=== PATIENT | male | born 2000 | race Caucasian/White ===

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

== ENCOUNTER 2024-06-06 22:53 | Emergency (ER) | payer OTHER, SELFPAY ==
[2024-06-06 22:54] VITALS: BP 156/77; PULSE 90; RESP 18; TEMP 36.7; O2SAT 100; BMI 32.1
[2024-06-06 22:56] VITALS: BP 156/77; PULSE 90; RESP 18; TEMP 36.7; O2SAT 100
--- NOTE | 2024-06-06 23:22 | EX.ED.DYSGE1 ---
HPI History of Present Illness Chief Complaint: Rash Informant: patient and parent Narrative Narrative: Patient is a 24-year-old male with no significant past medical history. He states Monday night to Monday morning he noticed redness to the top of his right foot. He states that there was no trauma and he denies any exposures. He states that the rash was more painful and not pruritic. He reports that he had subjective fevers with this. He states that his symptoms were not improving and he noticed that the redness was spreading across his foot and down towards his toes so he went to his family doctor yesterday and they had concern for an infection so therefore they gave him a shot of antibiotic and placed him on doxycycline. He states that despite being on the antibiotic for the last 24 hours the redness is now streaking up his right leg past his knee. Therefore with the worsening symptoms he presents for evaluation [facility] Medical History GERD (gastroesophageal reflux disease) Home Medications ?Medication ?Instructions ?Recorded ?Last Taken ?Type doxycycline hyclate 100 mg capsule 100 mg PO BID 06/06/24 Unknown History ketorolac 10 mg tablet 10 mg PO Q6H PRN PRN moderate pain 06/06/24 Unknown History pantoprazole 40 mg tablet,delayed 40 mg PO DAILY 06/06/24 Unknown History release clindamycin HCl 300 mg capsule 300 mg PO 4X/DAY 10 days #40 caps 06/07/24 Unknown Rx Allergy/AdvReac Type Severity Reaction Status Date / Time No Known Allergies Allergy Verified 06/06/24 22:54 Social History Smoking Status: Current every day smoker tobacco type: e-cigarettes [facility] ED Constitutional Constitutional ED: Reports fever(s) and subjective; Denies chills ENT ENT ED: Denies sore throat Cardiovascular Cardiovascular: Denies chest pain Respiratory/Chest Respiratory/Chest: Denies cough or dyspnea Gastrointestinal Gastrointestinal: Denies abdominal pain, diarrhea, nausea or vomiting Genitourinary Genitourinary ED: Denies dysuria Musculoskeletal Musculoskeletal: Reports other Details: Positive right foot/leg pain Integumentary Reports rash Neurologic Neurologic: Denies headache(s) Hematologic/Lymphatic Hematologic/Lymphatic: Denies easy bleeding or easy bruising Allergic/Immunologic Allergic/Immunologic ED: Denies mouth swelling, tongue swelling or urticaria EXAM Physical Exam Const Vital Signs: 06/06/24 22:54 06/06/24 22:56 06/06/24 23:56 Temperature 98.1 F 98.1 F 98.1 F Temperature Source Oral Oral Oral Pulse Rate 90 90 66 Respiratory Rate 18 18 16 Blood Pressure 156/77 H 156/77 H 107/64 Blood Pressure Mean 103 103 78 Pulse Ox 100 100 98 Oxygen Delivery Method Room Air Room Air Room Air Positive well nourished and well developed General Appearance ED: well developed HEENT Reports moist mucous membranes HEENT Narrative: No tongue or lip swelling no oral lesions no airway edema or compromise Eyes PERRL and EOMs intact bilaterally Neck supple Neck Narrative: No nuchal rigidity or meningeal signs Resp normal respiratory effort and clear to auscultation bilaterally Cardio regular rate and regular rhythm Extremity Extremity Narrative: Right lower extremity is neurovascularly intact. There is soft tissue swelling to the dorsum of the foot with diffuse erythema along the dorsal aspect. This extends down towards the toes. There is erythema with lymphangitic streaking spreading up the anterior medial aspect of the right perez. There is mild asymmetric swelling of the right lower leg compared to the left. However Homans' sign is negative. Compartments are soft and compressible going against compartment syndrome. Rash is blanchable in nature. No obvious signs of trauma or puncture. Patient has full active range of motion Remainder the exam is normal Neuro oriented x3, CN's II-XII intact bilaterally and no sensory deficits noted Sensorium / Orientation: alert Motor Exam: strength 5/5 throughout Psych mental status grossly normal Skin Skin Narrative: Soft tissue changes to the right lower leg as documented above MDM MDM MDM Narrative Medical decision making narrative: Patient arrived to the ER slightly hypertensive but overall with stable vitals. He reported mild redness to the top of his foot that began on Monday night into Monday morning without potential new allergic exposures or trauma. He states that as the days passed the redness began to spread. Differential diagnosis is for cellulitis versus abscess versus potential osteomyelitis or systemic infection/sepsis. Even though the patient denied trauma in order to check for potential osteomyelitis or a small puncture that could have led to the infection an x-ray of his foot was obtained as this is where the skin discoloration began. X-ray revealed no signs of osteomyelitis fracture or retained foreign body. With concern for developing systemic infection because of the lymphangitic streaking blood work was obtained. The patient's white count is normal he does not have a left shift his lactic acid is normal and his procalcitonin is not clinically significantly elevated. This coupled with his normal vitals goes against SIRS response or systemic infection. He is only been on antibiotics for 24 hours as well which is not long enough to state he is failed outpatient therapy. Blood cultures were obtained and will be followed. I do feel that based on his normal laboratory values and vitals and the fact that he does not have a history of immunosuppression there is no need for emergent admission. I will add clindamycin on top of the doxycycline for broader antibiotic coverage. The patient and family understand that his blood cultures will be followed and if they are positive he will be notified and most likely need to return to the ER for IV antibiotics and potential admission. They also understand that if he continues his medications as directed but does not have improvement over the next few days he will have technically failed outpatient therapy and may need admitted for IV antibiotics at that time. We did discuss potential admission now based on the sudden worsening of symptoms. However the patient states that as his workup here is negative he will try continued outpatient treatment and only return if the criteria above are met. History & Record Review Discussion w/independent historian: Patient and Family Lab Data Attestation: I reviewed the patient's lab results. Labs: Laboratory Results - last 24 hr 06/06/24 23:22 WBC 7.5 RBC 4.85 Hgb 15.7 Hct 45.1 MCV 93.0 MCH 32.4 H MCHC 34.8 RDW Std Deviation 40.9 RDW Coeff of Renee 11.9 Plt Count 254 MPV 10.5 Immature Gran % (Auto) 0.300 Neut % (Auto) 66.0 Lymph % (Auto) 23.4 [place] % (Auto) 8.2 Eos % (Auto) 1.6 Baso % (Auto) 0.5 Absolute Neuts (auto) 5.0 Absolute Lymphs (auto) 1.76 Nucleated RBC % 0 Sodium 141 Potassium 3.8 Chloride 105 Carbon Dioxide 21.3 Anion Gap 14 BUN 19 Creatinine 0.87 Estim Creat Clear Calc 143.71 Est GFR (MDRD) Non-Af 124 BUN/Creatinine Ratio 21.8 H Glucose 93 Lactic Acid 1.3 Calcium 9.1 Procalcitonin 0.13 H Radiography Diagnostic Testing: Clinical Impression(s) from Imaging Studies Foot X-Ray 06/06/24 23:35 IMPRESSION: NEGATIVE FOOT SERIES Reading Location: [facility] X-ray of the right foot as interpreted by the emergency medicine physician reveals no acute fracture dislocation signs of osteomyelitis or retained foreign body Discharge Plan Triage Chief Complaint: Rash ED Provider: Rodrigo Bhatia Dx/Rx/DC Orders Clinical Impression: Cellulitis of foot, right, Lymphangitis of lower extremity Instructions: Cellulitis Dc, ED Lymphangitis Prescriptions: New clindamycin HCl 300 mg capsule 300 mg PO 4X/DAY 10 Days Qty: 40 0RF No Action doxycycline hyclate 100 mg capsule 100 mg PO BID ketorolac 10 mg tablet 10 mg PO Q6H PRN PRN (Reason: moderate pain) pantoprazole 40 mg tablet,delayed release (DR/EC) 40 mg PO DAILY Primary Care Provider: Dakota Hernandez Referrals: Care Physician,No Primary [Non-Staff] - Activity Restrictions/Additional Instructions: Please continue the doxycycline prescribed by your family doctor to begin taking the clindamycin with it as directed for improved microbial coverage. If your blood cultures are positive you will be notified and will most likely need to return to the hospital for IV antibiotics and admission. If you do not have improvement of your symptoms after 3 days of oral antibiotics you may need admitted as well for IV antibiotics as you will at that time technically failed outpatient treatment. Print Language: Indian Disposition Disposition: Home, Self Care
--- NOTE | 2024-06-06 23:35 | RAD_ITS ---
PROCEDURE: FOOT MIN 3 VIEWS 06/06/2024 REASON FOR EXAM: PAIN, swelling and redness. TECHNIQUE: 3 views of the right foot. COMPARISON: None. FINDINGS: Bones: No visible fracture. No suspicious bone lesion. Joints: Normal alignment. Joint spaces preserved. No arthropathic features. Soft tissues: No radiopaque foreign body. RAD/Foot min 3 Views IMPRESSION: NEGATIVE FOOT SERIES Reading Location: [id number]
[2024-06-06] MEDS: Piperacil/Tazobactam 3.375 GM in 0.9% Normal Saline (50mL MB+) 50 ML IV (23:42)
[2024-06-06 23:46] LABS: Absolute Lymphocyte Count 1.76 X10^3/uL (0.83-4.51); Basophil# 0.04 X10^3/uL; Basophil% 0.5 % (0-1); Eosinophil# 0.12 X10^3/uL; Eosinophils% 1.6 % (0-5); Hematocrit 45.1 % (40-54); Hemoglobin 15.7 g/dL (13.0-16.5); Lymphocyte # 1.76 X10^3/ul (0.83-4.51); Lymphocyte % 23.4 % (19-41); Mean Corp Hgb Conc 34.8 g/dL (32-36); Mean Corpuscular Hgb 32.4 pg (27.0-32.0); Mean Platelet Vol. 10.5 fl (6.2-12.0); Monocyte# 0.62 X10^3/uL; Monocyte% 8.2 % (0-10); NRBC Flagged by Analyzer 0 % (0-5); Neutrophil # 4.97 X10^3/uL (2.7-7.7); Platelet Count 254 K/mm3 (150-450); RBC Distribution Width CV 11.9 % (11.6-14.6); RBC Distribution Width SD 40.9 fl (35.1-43.9); Red Blood Count 4.85 M/mm3 (4.6-6.2); White Blood Count 7.5 K/mm3 (4.4-11.0)
[2024-06-06 23:56] VITALS: BP 107/64; PULSE 66; RESP 16; TEMP 36.7; O2SAT 98
[2024-06-07 00:04] LABS: Lactic Acid 1.3 mmol/L (0.0-2.0)
[2024-06-07 00:10] LABS: Anion Gap 14 (5-15); BUN 19 mg/dL (4-19); BUN/Creat Ratio 21.8 RATIO (10-20); Calcium,Total 9.1 mg/dL (7.6-11.0); Carbon Dioxide 21.3 mmol/L (21.0-32.0); Chloride 105 mmol/L (98-108); Creatinine, Serum 0.87 mg/dL (0.70-1.20); EST Glomerular Filtration Rate 124 (>60); Estimated Creatinine Clearance 143.71 ml/min (50-250); Glucose 93 mg/dL (70-99); Potassium 3.8 mmol/L (3.3-5.1); Procalcitonin 0.13 ng/mL (<=0.10); Sodium Level 141 mmol/L (133-145)
[2024-06-07] MEDS: Vancomycin HCl 1,500 MG in 0.9% Normal Saline (500mL Bag) 500 ML 250 MG IV (00:27)
[2024-06-07 02:58] VITALS: BP 99/57; PULSE 89; RESP 16; TEMP 36.7; O2SAT 97
== END 2024-06-07 02:59 | disposition home or self-care (01) ==
PROVIDERS: Emergency Provider Emergency Medicine; PCP Student in an Organized Health Care Education/Training Program; Visit Provider Emergency Medicine
DX: L03.115 Cellulitis of right lower limb (principal); K21.9 Gastro-esophageal reflux disease without esophagitis; Z79.899 Other long term (current) drug therapy; F17.290 Nicotine dependence, other tobacco product, uncomplicated
CPT/HCPCS: 73630; 80048; 83605; 84145; 85025; 87040; 96365; 96366; 96368; 99284; A4216